=== PATIENT | female | born 1995 | race Caucasian/White ===

== ENCOUNTER → 2019-01-08 | Outpatient (REF) | payer OTHER | LOC: M SFHCLERA 13:54 | PROVIDERS: ATTEND Nurse Practitioner Family | DX: R30.0 Dysuria (principal) | CPT/HCPCS: 81002; 81025; 87088; 87186; G0463 ==

== ENCOUNTER 2019-09-13 23:34 | Emergency (ER) | payer OTHER ==
[~2019-09-13] VITALS: Ht 157.5 cm; Wt 60.9 kg
[2019-09-13] MEDS ORDERED: METF500T13 PO (23:39)
[2019-09-14 00:25] LABS: BASO % 0.4 % (0.0-1.0); EOS # 0.2 10^3/uL (0.0-0.5); EOS % 1.8 % (0.0-3.0); HEMATOCRIT 43.3 % (36.0-47.0); HEMOGLOBIN 14.8 g/dl (12.0-15.5); LYMPH # 3.1 10^3/uL (1.5-5.0); LYMPH % 29.3 % (24.0-44.0); MEAN CORPUSCULAR HEMOGLOBIN 29.1 pg (27.0-33.0); MEAN CORPUSCULAR HGB CONC 34.2 g/dl (32.0-36.5); MEAN CORPUSCULAR VOLUME 85.2 fl (80.0-96.0); MONO # 0.5 10^3/uL (0.0-0.8); MONO % 5.1 % (0.0-5.0); NEUTROPHILS # 6.7 10^3/uL (1.5-8.5); PLATELET COUNT, AUTOMATED 223 10^3/uL (150-450); RED BLOOD COUNT 5.08 10^6/uL (4.00-5.40); WHITE BLOOD COUNT 10.7 10^3/uL (4.0-10.0)
--- NOTE | 2019-09-14 01:40 | REPVR ---
PROCEDURE INFORMATION: Exam: US First Trimester, Transabdominal Exam date and time: 09/14/19 (12:15am) Age: 24 years old Clinical indication: female with heavy vaginal bleeding and passing clots. LMP: 06/08/19. TECHNIQUE: Imaging protocol: Real-time transabdominal obstetrical ultrasound of the maternal pelvis and a first trimester , less than 14 weeks 0 days, with image documentation. COMPARISON: No relevant prior studies available FINDINGS: The LMP is reported to be: 06/08/19 Based on the menstrual history, the current expected age = 14 weeks 0 days. No IUP is seen. The uterus is 'empty'. No intrauterine gestational sac and no pole are identified. The uterus is anteverted, measuring 10.0 x 5.3 x 6.6 cm in dimensions. No uterine mass. The fundal endometrium is thin and smooth (5 mm). The endometrium in the lower uterine segment is thickened (17 mm), with clots and echogenic debris. The right ovary measures 4.0 x 3.1 x 2.4 cm in dimensions. The left ovary measures 3.3 x 2.5 x 2.8 cm in dimensions. There is no evidence of torsion on Doppler evaluation. Trace free posterior CDS fluid. No solid adnexal mass. IMPRESSION: No IUP is seen. The uterus is 'empty'. No intrauterine gestational sac and no pole are identified. The endometrium is thickened (17 mm thickness) in the lower uterine segment. The ovaries are unremarkable, with no evidence of torsion. The differential diagnosis includes: incomplete spontaneous ; failed early ; nonvisualized ectopic . Clinical and quantitative hCG correlation are needed. In the appropriate clinical setting, an ectopic cannot be excluded. Electronically signed by: Misty Jones On 09/14/2019 01:39:58 AM
[2019-09-14] MEDS ORDERED: ACETAMINOPHEN 325 MG TAB PO ONE (02:00)
[2019-09-14 02:04] LABS: BILIRUBIN, URINE MANUAL NEGATIVE (NEGATIVE); GLUCOSE, URINE (UA) MANUAL NEGATIVE (NEGATIVE); KETONE, URINE MANUAL NEGATIVE (NEGATIVE); UROBILINOGEN, URINE MANUAL NORMAL (NORMAL)
[2019-09-14 02:07] LABS: RBC, URINE TNTC /hpf (0-3)
[2019-09-14 02:08] LABS: SQUAMOUS EPITHELIAL CELL URINE SMALL AMOUNT /hpf (SMALL AMT)
[2019-09-14 02:09] LABS: BACTERIA, URINE SMALL AMOUNT; HYALINE CAST, URINE NONE SEEN /lpf (0-1)
[2019-09-14 02:28] LABS: ALBUMIN 3.6 GM/DL (3.2-5.2); ALT/SGPT 29 U/L (12-78); BILIRUBIN,TOTAL 0.1 MG/DL (0.2-1.0); BLOOD UREA NITROGEN 9 MG/DL (7-18); CALCIUM LEVEL 9.3 MG/DL (8.5-10.1); CARBON DIOXIDE LEVEL 26 MEQ/L (21-32); CHLORIDE LEVEL 106 MEQ/L (98-107); CREATININE FOR GFR 0.56 MG/DL (0.55-1.30); GLOMERULAR FILTRATION RATE > 60.0 (>60); GLUCOSE, FASTING 108 MG/DL (70-100); HCG, SERUM QUANTITATIVE 6955 MIU/ML; POTASSIUM SERUM 3.7 MEQ/L (3.5-5.1); SODIUM LEVEL 140 MEQ/L (136-145); TOTAL PROTEIN 6.9 GM/DL (6.4-8.2)
[2019-09-14] MEDS ORDERED: IBUPROFEN 600 MG TAB PO ONE (02:30)
[2019-09-14 03:04] VITALS: BP 123/90
== END 2019-09-14 03:05 | disposition home or self-care (01) ==
LOC: M ED 23:34
DX: O03.4 Incomplete spontaneous abortion without complication (principal); Z79.84 Long term (current) use of oral hypoglycemic drugs

== ENCOUNTER 2021-04-27 22:12 | Emergency (ER) | payer OTHER ==
[~2021-04-27] VITALS: Ht 157.5 cm; Wt 66.0 kg
[~2021-04-27 22:12] MED LIST: METF500T13 PO
[2021-04-28 01:12] LABS: BASO % 0.4 % (0.0-1.0); EOS # 0.2 10^3/uL (0.0-0.5); EOS % 1.9 % (0.0-3.0); HEMOGLOBIN 15.1 g/dl (12.0-15.5); LYMPH # 2.8 10^3/uL (1.5-5.0); MEAN CORPUSCULAR HEMOGLOBIN 29.7 pg (27.0-33.0); MEAN CORPUSCULAR HGB CONC 35.1 g/dl (32.0-36.5); MEAN CORPUSCULAR VOLUME 84.6 fl (80.0-96.0); MONO # 0.5 10^3/uL (0.0-0.8); MONO % 5.8 % (2.0-8.0); NEUTROPHILS # 4.8 10^3/uL (1.5-8.5); NEUTROPHILS % 57.7 % (36.0-66.0); PLATELET COUNT, AUTOMATED 230 10^3/uL (150-450); RED BLOOD COUNT 5.08 10^6/uL (4.00-5.40); WHITE BLOOD COUNT 8.3 10^3/uL (4.0-10.0)
[2021-04-28] MEDS ORDERED: GI COCKTAIL 50ML BTL(HYOSCYAMINE/MAALOX/LIDOCAINE VISCOUS)(1:3:1) PO ONE (01:35)
[2021-04-28 01:41] LABS: ALBUMIN 3.4 GM/DL (3.2-5.2); ALT/SGPT 136 U/L (12-78); BILIRUBIN,DIRECT < 0.1 MG/DL (0.0-0.2); BILIRUBIN,TOTAL 0.2 MG/DL (0.2-1.0); LIPASE 93 U/L (73-393); TOTAL PROTEIN 6.6 GM/DL (6.4-8.2)
--- NOTE | 2021-04-28 04:30 | REPVR ---
PROCEDURE INFORMATION: Exam: US Abdomen, Limited; Right Upper Quadrant Exam date and time: 04/28/2021 2:30 AM Age: 25 years old Clinical indication: Abdominal pain; Additional info: Ruq pain, elevated lft's R/O gallstones TECHNIQUE: Imaging protocol: US abdomen. Real time ultrasound with image documentation. Limited exam focused on the right upper quadrant. COMPARISON: No relevant prior studies available. FINDINGS: Limitations: Examination is limited by body habitus and bowel gas. Liver: The liver is echogenic with attenuation of the ultrasound beam, consistent with fatty liver. Gallbladder: The gallbladder is partially contracted. Mobile, echogenic stones are seen in the fundus of the gallbladder. The gallbladder wall appears thickened but this may be due to contraction. The apparatus engineering technologist reports a positive Adames's sign. Common bile duct: The common bile duct could not be visualized. Pancreas: Pancreas is not well seen, obscured by body habitus and bowel gas. Right kidney: The right kidney is normal in size and echogenicity with no hydronephrosis or stones identified. The right kidney measures 9.8 cm in length. IMPRESSION: 1. Mobile stones within a contracted gallbladder. Please correlate with when the patient last ingested food. Apparent thickening of the gallbladder wall may be due to contraction. The technologist reports tenderness in the right upper quadrant, but contraction of the gallbladder is more consistent with chronic cholecystitis than acute cholecystitis. 2. Echogenic, fatty liver. 3. No gross biliary ductal dilation. The common bile duct could not be visualized. Electronically signed by: Danielle Lopez On 04/28/2021 04:30:06 AM
[2021-04-28] MEDS ORDERED: DICY10CA13 PO (05:43)
[2021-04-28] MEDS ORDERED: DICYCLOMINE 10 MG CAP PO ONE (05:45)
[2021-04-28 05:59] VITALS: BP 146/88
[2021-04-29 10:45] LABS: HEPATITIS B SURFACE ANTIGEN NEGATIVE (NEGATIVE)
[2021-04-29 11:12] LABS: HEPATITIS B CORE ANTIBODY IGM NEGATIVE (NEGATIVE); HEPATITIS C VIRUS ABY INDEX 0.1 INDEX (<0.8)
[2021-04-29 11:15] LABS: HEPATITIS A ANTIBODY IGM NEGATIVE (NEGATIVE)
== END 2021-04-28 06:01 | disposition home or self-care (01) ==
LOC: M ED 22:12
DX: K80.50 Calculus of bile duct without cholangitis or cholecystitis without obstruction (principal); K76.0 Fatty (change of) liver, not elsewhere classified; E73.9 Lactose intolerance, unspecified